=== PATIENT | female | born 1965 | race Caucasian/White ===

== ENCOUNTER → 2024-12-18 | Day surgery (SDC) | payer MEDICAID ==
[~2024-12-18] VITALS: Ht 162.6 cm; Wt 72.6 kg
[~2024-12-18] MED LIST: ACET600C PO; BACI1CAP6 PO; HYDROMORPHONE HCL/PF 1MG/ML INJ IV PRN; IPRATROPIUM/ALBUTEROL 0.5-3(2.5)MG/3ML NEB HHN PRN; LABETALOL 5MG/ML 4ML INJ IV PRN; MEPERIDINE HCL/PF 25MG/ML CPJ IV PRN; MIDAZOLAM HCL 2 MG/2 ML VIAL ONE; NALOXONE HCL 0.4MG/ML 1ML VIAL IV PRN; NEO/POLYMYX B SULF/DEXAMETH OPHTH OINT 3.5GM ONE; ONDANSETRON HCL 4MG/2ML INJ IV PRN; PROPOFOL 200MG/20ML VIAL IV ONE; TRIAMCINOLONE ACETONIDE 40MG/ML 1ML VIAL ONE
[2024-12-18 08:11] LABS: BASOPHILS % 0.7 % (0.0-2.0); EOSINOPHILS % 1.9 % (0.0-5.0); HEMATOCRIT. 45.2 % (36.0-48.0); HEMOGLOBIN. 14.9 g/dL (12.0-16.0); LYMPHOCYTES % 41.2 % (20.0-50.0); MEAN CORPUSCULAR HEMOGLOBIN 31.1 pg (28.0-32.0); MEAN CORPUSCULAR VOLUME 94.4 fL (81.0-99.0); MONOCYTES % 6.1 % (2.0-8.0); NEUTROPHILS % 50.1 % (40.0-76.0); RED BLOOD CELL COUNT 4.79 mill/uL (4.2-5.4); RED CELL DISTRIBUTION WIDTH 13.9 % (11.6-14.6)
[2024-12-18 08:14] LABS: DIFFERENTIAL COMMENT 1
[2024-12-18 08:18] LABS: CHLORIDE 107 mEq/L (98-107); POTASSIUM 4.2 mEq/L (3.5-5.1); SODIUM 140 mEq/L (136-145)
[2024-12-18 08:19] LABS: CARBON DIOXIDE 26 mEq/L (21-32)
[2024-12-18 08:20] LABS: CALCIUM 9.7 mg/dL (8.7-10.4)
[2024-12-18 08:24] LABS: CREATININE 0.8 mg/dL (0.6-1.0); GLUCOSE 108 mg/dL (70-105); UREA NITROGEN BLOOD 14 mg/dL (9-23)
[2024-12-18 08:53] LABS: PLATELET 162 x1000/uL (130-400)
[2024-12-18] MEDS: LACTATED RINGERS 1,000 ML IV SCH (09:05)
== END | disposition home or self-care (01) ==
LOC: OR 07:39
PROVIDERS: ATTEND Ophthalmology
DX: H11.001 Unspecified pterygium of right eye (principal); Z86.2 Personal history of diseases of the blood and blood-forming organs and certain disorders involving the immune mechanism; Z90.710 Acquired absence of both cervix and uterus; Z90.49 Acquired absence of other specified parts of digestive tract; Z98.890 Other specified postprocedural states; Z79.899 Other long term (current) drug therapy
CPT/HCPCS: 65420; 93005; 80048; 85025; 36415; J2250; J2704; J3301; A4663; J3490